=== PATIENT | male | born 1990 | race Caucasian/White ===

== ENCOUNTER 2021-12-30 12:19 | Observation (INO) | payer OTHER ==
[2021-12-30] MEDS ORDERED: ASPIRIN 81 MG CHEWABLE TABLET ONE (12:59)
[2021-12-30 13:09] LABS: Absolute Lymphocytes (CBC) 2.6 K/uL (0.7-4.9); Hematocrit 46.6 % (39.6-49.0); Lymphocytes % 31.8 % (15.3-44.8); MPV 7.3 fL (7.6-11.3); RBC Red Blood Cell Count 5.06 M/uL (4.33-5.43)
--- NOTE | 2021-12-30 13:14 | RAD REPORT ---
EXAM DESCRIPTION: RAD - Chest Single View - 12/30/2021 1:08 pm CLINICAL HISTORY: Right sided weakness Chest pain. COMPARISON: CHEST SINGLE VIEW dated 11/09/2008 FINDINGS: Portable technique limits examination quality. The lungs are grossly clear. The heart is normal in size. No displaced fractures. IMPRESSION: No acute intrathoracic process suspected.
[2021-12-30 13:22] LABS: Protime INR 0.99
[2021-12-30 13:27] LABS: Bilirubin Direct 0.1 mg/dL (0-0.2); Bilirubin Total 0.4 mg/dL (0.2-1.0); Potassium 4.2 mmol/L (3.5-5.1); Protein, Total 7.5 g/dL (6.4-8.2)
--- NOTE | 2021-12-30 14:07 | RAD REPORT ---
EXAM DESCRIPTION: CT - Ct Stroke Brain Wo Cont - 12/30/2021 2:00 pm CLINICAL HISTORY: Neuro deficit, acute, stroke suspected Headache, drowsiness, CVA symptomology. COMPARISON: No comparisons TECHNIQUE: All CT scans are performed using dose optimization technique as appropriate and may inclu de automated exposure control or mA/KV adjustment according to patient size. FINDINGS: No intracranial hemorrhage, hydrocephalus or extra-axial fluid collection.No areas of brai n edema or evidence of midline shift. The paranasal sinuses and mastoids are clear. The calvarium is intact. IMPRESSION: No acute intracranial abnormality.
[2021-12-30] MEDS ORDERED: ATORVASTATIN 20 MG TAB ONE (14:09)
--- NOTE | 2021-12-30 14:09 | RAD REPORT ---
EXAM DESCRIPTION: CT - Head angio - 12/30/2021 2:00 pm CLINICAL HISTORY: Neuro deficit, acute, stroke suspected Headache, drowsiness, CVA symptomology COMPARISON: Ct Stroke Brain Wo Cont dated 12/30/2021 TECHNIQUE: CT angiography of the head was performed with MIPs. All CT scans are performed using dose optimization technique as appropriate and may include automated exposure control or mA/KV adjustment according to patient size. FINDINGS: No evidence of aneurysm is detected. No flow-limiting stenosis or vascular malformation id entified. Antegrade flow is seen in the vertebral arteries. The vertebral arteries are codominant. The visualized dural venous sinuses are patent. IMPRESSION: No significant flow abnormality is detected.
[2021-12-30] MEDS ORDERED: NA CHLORIDE 0.9% 1,000 ML ONE (14:10)
[2021-12-30] MEDS ORDERED: FOLIC ACID 5 MG/ML VIAL ONE (14:10)
--- NOTE | 2021-12-30 14:12 | RAD REPORT ---
EXAM DESCRIPTION: CT - Neck Angio - 12/30/2021 2:00 pm CLINICAL HISTORY: Neuro deficit, acute, stroke suspected COMPARISON: No comparisons TECHNIQUE: CT angiography of the neck vessels was performed with MIPs. All CT scans are performed using dose optimization technique as appropriate and may include automated exposure control or mA/KV adjustment according to patient size. FINDINGS: A left aortic arch is identified with normal three vessel configuration of the great vesse ls. No significant flow abnormality is seen of the common carotid bilaterally. No significant stenosis is identified involving the cervical segments of both internal carotid arteri es. Normal flow is seen within both vertebral arteries. IMPRESSION: No significant flow abnormality of the neck vessels is identified.
--- NOTE | 2021-12-30 15:55 | RAD REPORT ---
EXAM DESCRIPTION: MRI - Brain Wo Cont - 12/30/2021 3:44 pm CLINICAL HISTORY: Neuro deficit, acute, stroke suspected Headache, drowsiness, CVA symptomology COMPARISON: Head angio dated 12/30/2021 TECHNIQUE: Multi-sequence, multiplanar MR imaging of the brain was performed without contrast. FINDINGS: No intracranial hemorrhage, hydrocephalus or extra-axial fluid collections. No edema or sh ift of midline structures. No findings to suspect brain mass. DWI is negative for acute CVA. Midline structures are normally formed. Mastoid air cells and paranasal sinuses are essentially clear. IMPRESSION: Negative for acute CVA or other acute intracranial process.
--- NOTE | 2021-12-30 16:33 | ER ---
Nurse's Notes [facility] Name: Baljit Salter Age: 31 yrs Sex: Male : 1990 Arrival Date: 12/30/2021 Time: 12:21 Bed 18 Private MD: Diagnosis: Cerebral infarction, unspecified-Rght sided weakness and paresthesia Presentation: 12/30 12:41 Chief complaint: Patient states: that [place] the beach, at approx ap3 1500, he started feeling a "heavy" feeling in his right arm. Patient states he thought it was him having high blood pressure. However he reports it then spread to his right leg and right side of the face. Patient states he feels like the right side of his arm and leg are "heavy". Coronavirus screen: At this time, the client does not indicate any symptoms associated with coronavirus-19. Ebola Screen: No symptoms or risks identified at this time. No acute neurological deficit is noted. Pre-hospital glucose is not applicable to this patient. Initial Sepsis Screen: Does the patient meet any 2 criteria? No. Patient's initial sepsis screen is negative. Does the patient have a suspected source of infection? No. Patient's initial sepsis screen is negative. Risk Assessment: Do you want to hurt yourself or someone else? Patient reports no desire to harm self or others. Onset of symptoms was December 29, 2021 at 15:00. 12:41 Method Of Arrival: Ambulatory ap3 12:41 Acuity: BRANDON 2 ap3 Triage Assessment: 12:50 The onset of the patients symptoms was December 29, 2021 at 15:00. ap3 12:50 Neuro: Reports weakness in right arm and right leg. ap3 Stroke Activation: Symptom onset > 6 hours Physician: Stroke Attending; Name: ; Notified At: ; Arrived At: Physician: Chief Stroke Resident; Name: ; Notified At: ; Arrived At: Physician: Stroke Resident; Name: ; Notified At: ; Arrived At: Physician: ED Attending; Name: ; Notified At: ; Arrived At: Physician: ED Resident; Name: ; Notified At: ; Arrived At: Historical: - Allergies: 12:50 No Known Allergies; ap3 - Home Meds: 12:50 None [Active]; ap3 - PMHx: 12:50 None; ap3 - Immunization history:: Client reports having NOT received the Covid vaccine. - Social history:: Smoking status: Patient reports the use of cigarette tobacco products, denies chronic smoking, but will smoke occasionally. Screenin:44 Abuse screen: Denies threats or abuse. Nutritional screening: No deficits noted. ap3 Tuberculosis screening: No symptoms or risk factors identified. Fall Risk No fall in past 12 months (0 pts). Secondary diagnosis (15 points) IV access (20 points). Ambulatory Aid- Crutches/Cane/Walker (15 pts). Gait- Impaired (20 pts.). Mental Status- Oriented to own ability (0 pts). Total Alvarez Fall Scale indicates Low Risk Score (25-44 pts). Fall prevention measures have been instituted. Side Rails Up X 2 Placed close to Nursing Station Frequent Obs/Assesments occuring As available Patient and Family Educated on Fall Prevention Program and strategies. Assessment: 12:48 VAN Scoring: Arm Drift: Patients demonstrates NO arm weakness. Patient is VAN Negative. ap3 Patient has been NPO before screening. The patient is alert, and able to follow commands. The patient does not exhibit slurred or garbled speech. The patient is not exhibiting difficulty speaking. The patient does not exhibit difficulty understanding words. The patient is able to swallow own secretions with no drooling or need for suction. Patient tolerated one teaspoon of water. No drooling, immediate coughing, gurgling, or clearing of the throat was noted. The patient tolerated 90mL of water. No drooling, immediate coughing, gurgling, or clearing of the throat was noted. The patient passed the bedside swallow screening. Oral medications may be given as ordered. Contact Physician for further diet orders. Provider notified of bedside swallow screening results: Roman Koo RESIDENT SERVICES COORDINATOR. T-PA (Activase) Screening: Contraindications: Patient reports onset of signs and symptoms of stroke greater than 6 hours ago: Yes. General: Appears in no apparent distress. Behavior is calm, cooperative. Pain: Denies pain. Neuro: Level of Consciousness is awake, alert, obeys commands, Oriented to person, place, time, situation, Appropriate for age Glass Melt Operator are weak on right Weakness in right arm(s) leg(s) Gait is unsteady, Speech is normal, Facial droop on right. Cardiovascular: Patient's skin is warm and dry. Respiratory: Airway is patent Respiratory effort is even, unlabored, Respiratory pattern is regular, symmetrical. 13:22 Reassessment: Patient and/or family updated on plan of care and expected duration. Pain ap3 level reassessed. Patient is alert, oriented x 3, equal unlabored respirations, skin warm/dry/pink. 16:37 Reassessment: Patient and/or family updated on plan of care and expected duration. Pain ap3 level reassessed. Patient is alert, oriented x 3, equal unlabored respirations, skin warm/dry/pink. 17:17 Reassessment: No changes from previously documented assessment. Patient and/or family ap3 updated on plan of care and expected duration. Pain level reassessed. Patient is alert, oriented x 3, equal unlabored respirations, skin warm/dry/pink. 19:30 Reassessment: Patient and/or family updated on plan of care and expected duration. Pain vc1 level reassessed. Patient is alert, oriented x 3, equal unlabored respirations, skin warm/dry/pink. 20:30 Reassessment: No changes from previously documented assessment. Patient and/or family vc1 updated on plan of care and expected duration. Pain level reassessed. Patient is alert, oriented x 3, equal unlabored respirations, skin warm/dry/pink. Vital Signs: 12:41 BP 147 / 86; Pulse 67; Resp 17; Temp 97.4; Pulse Ox 100% ; Weight 127.01 kg; Height 5 ap3 ft. 11 in. (180.34 cm); 13:22 BP 135 / 79; Pulse 70; Pulse Ox 98% on R/A; ap3 16:37 BP 120 / 72; Pulse 66; Pulse Ox 99% on R/A; ap3 17:18 BP 122 / 73; Pulse 58; Pulse Ox 99% on R/A; ap3 20:00 BP 120 / 70; Pulse 68; Resp 17; Pulse Ox 99% ; vc1 12:41 Body Mass Index 39.05 (127.01 kg, 180.34 cm) ap3 NIH Stroke Scale Scores: 12:44 NIHSS Score: 2 ap3 12:44 NIHSS Score: 2 pm1 12:48 NIHSS Score: 2 ap3 ED Course: 12:21 Patient arrived in ED. rg4 12:26 Tracie Vasquez, RN is Primary Nurse. ap3 12:28 Roman Koo RESIDENT SERVICES COORDINATOR is PHCP. pm1 12:28 Fercho Sierra MD is Attending Physician. pm1 12:44 Triage completed. ap3 12:49 Arm band placed on right wrist. ap3 12:50 Patient has correct armband on for positive identification. Bed in low position. Call ap3 light in reach. Side rails up X 1. giant tire repairer on. Pulse ox on. NIBP on. Door closed. Noise minimized. 13:02 Inserted saline lock: 20 gauge in right antecubital area, using aseptic technique. ap3 Blood collected. 13:07 X-ray completed. Portable x-ray completed in exam room. Patient tolerated procedure mh1 well. 13:10 Stroke CXR 1 View In Process Unspecified. EDMS 13:[address] Patient moved back from [address]. ap3 14:01 CT Stroke Brain w/o Contrast In Process Unspecified. EDMS 14:02 CT Head Angio In Process Unspecified. EDMS 14:02 CT Neck Angio In Process Unspecified. EDMS 14:51 Pt visited by . ap3 15:38 MRI - Brain Wo Cont In Process Unspecified. EDMS 16:31 Ger Sierra MD is Hospitalizing Provider. pm1 16:44 Deric Perez MD is Hospitalizing Provider. pm1 16:51 No provider procedures requiring assistance completed. Patient admitted, IV remains in ap3 place. Administered Medications: 13:01 Drug: Aspirin 325 mg Route: PO; ap3 14:12 Follow up: Response: No adverse reaction ap3 14:12 Drug: foLIC Acid 1 mg Route: IVPB; Site: right forearm; ap3 17:19 Follow up: IV Status: Completed infusion ap3 14:12 Drug: Lipitor (atorvastatin) 80 mg Route: PO; ap3 14:54 Follow up: Response: No adverse reaction ap3 14:12 Drug: NS 0.9% 1000 ml Route: IV; Rate: 125 ml/hr; Site: right forearm; ap3 17:19 Follow up: IV Status: Completed infusion; IV Intake: 1000ml ap3 Medication: 12:51 VIS not applicable for this client. ap3 Point of Care Testing: Blood Glucose: 16:51 Blood Glucose: 98 mg/dL; ap3 Ranges: Intake: 17:19 IV: 1000ml; Total: 1000ml. ap3 Outcome: 16:32 Decision to Hospitalize by Provider. pm1 16:51 Admitted to ER Hold. Please see [facility] for further documentation. ap3 16:51 Condition: good 16:51 Instructed on the need for admit. 21:14 Patient left the ED. vc1 NIH Stroke Scale - NIH Stroke Score Date: 12/30/2021 Time: 12:44 Total Score = 2 1a. Level of Consciousness (LOC) - 0(Alert) 1b. Level of Consciousness (LOC) (Month \\T\\ Age) - 0(Both) 1c. LOC Commands (Open \\T\\ Closes Eyes/Provider Scribe) - 0(Both) 2. Best Gaze (Lateral Gaze Paresis) - 0(Normal) 3. Visual Field Loss - 0(No visual loss) 4. Facial Palsy - 1(Minor Paralysis) 5a. Left Arm: Motor (10-second hold) - 0(No drift) 5b. Right Arm: Motor (10-second hold) - 0(No drift) 6a. Left Leg: Motor (5-second hold - always test supine) - 0(No drift) 6b. Right Leg: Motor (5-second hold - always test supine) - 0(No drift) 7. Limb Ataxia (finger/nose \\T\\ heel/curry - test with eyes open) - 0(Absent) 8. Sensory Loss (pinprick arms/legs/face) - 1(Mild to moderate loss) 9. Best Language: Aphasia (description/naming/reading) - 0(No aphasia) 10. Dysarthria (speech clarity - read or repeat words) - 0(Normal) 11. Extinction and Inattention (visual/tactile/auditory/spatial/personal) - 0(No abnormality) Initials: ap3 NIH Stroke Scale - NIH Stroke Score Date: 12/30/2021 Time: 12:44 Total Score = 2 1a. Level of Consciousness (LOC) - 0(Alert) 1b. Level of Consciousness (LOC) (Month \\T\\ Age) - 0(Both) 1c. LOC Commands (Open \\T\\ Closes Eyes/Provider Scribe) - 0(Both) 2. Best Gaze (Lateral Gaze Paresis) - 0(Normal) 3. Visual Field Loss - 0(No visual loss) 4. Facial Palsy - 1(Minor Paralysis) 5a. Left Arm: Motor (10-second hold) - 0(No drift) 5b. Right Arm: Motor (10-second hold) - 0(No drift) 6a. Left Leg: Motor (5-second hold - always test supine) - 0(No drift) 6b. Right Leg: Motor (5-second hold - always test supine) - 0(No drift) 7. Limb Ataxia (finger/nose \\T\\ heel/curry - test with eyes open) - 0(Absent) 8. Sensory Loss (pinprick arms/legs/face) - 1(Mild to moderate loss) 9. Best Language: Aphasia (description/naming/reading) - 0(No aphasia) 10. Dysarthria (speech clarity - read or repeat words) - 0(Normal) 11. Extinction and Inattention (visual/tactile/auditory/spatial/personal) - 0(No abnormality) Initials: pm1 NIH Stroke Scale - NIH Stroke Score Date: 12/30/2021 Time: 12:48 Total Score = 2 1a. Level of Consciousness (LOC) - 0(Alert) 1b. Level of Consciousness (LOC) (Month \\T\\ Age) - 0(Both) 1c. LOC Commands (Open \\T\\ Closes Eyes/Provider Scribe) - 0(Both) 2. Best Gaze (Lateral Gaze Paresis) - 0(Normal) 3. Visual Field Loss - 0(No visual loss) 4. Facial Palsy - 1(Minor Paralysis) 5a. Left Arm: Motor (10-second hold) - 0(No drift) 5b. Right Arm: Motor (10-second hold) - 0(No drift) 6a. Left Leg: Motor (5-second hold - always test supine) - 0(No drift) 6b. Right Leg: Motor (5-second hold - always test supine) - 0(No drift) 7. Limb Ataxia (finger/nose \\T\\ heel/curry - test with eyes open) - 0(Absent) 8. Sensory Loss (pinprick arms/legs/face) - 1(Mild to moderate loss) 9. Best Language: Aphasia (description/naming/reading) - 0(No aphasia) 10. Dysarthria (speech clarity - read or repeat words) - 0(Normal) 11. Extinction and Inattention (visual/tactile/auditory/spatial/personal) - 0(No abnormality) Initials: ap3 Signatures: Dispatcher [employer] Sultana Frazier mh1 Roman Koo, RESIDENT SERVICES COORDINATOR RESIDENT SERVICES COORDINATOR pm1 Michelle Seay rg4 Tracie Vasquez, RN RN ap3 Verona Benitez, YADIRA RN vc1
--- NOTE | 2021-12-30 16:33 | EDPHYS ---
Physician Documentation [facility] Name: Baljit Salter Age: 31 yrs Sex: Male : 1990 Arrival Date: 12/30/2021 Time: 12:21 Bed 18 Private MD: ED Physician Fercho Sierra HPI: 12/30 12:43 This 31 yrs old Male presents to ER via Ambulatory with complaints of Facial Droop, pm1 High Blood Pressure. 12:43 The patient presents to the emergency department with weakness of the right upper pm1 extremity, weakness and numbness, right lower extremity, weakness and numbness, right side of the face, right facial droop. Onset: The symptoms/episode began/occurred yesterday, at 15:00. Context: occurred while driving to the beach yesterday. Started with heaviness in the right arm and then spread to his right face and leg. Associated signs and symptoms: Pertinent positives: mild left sided headache with onset of right arm heaviness. Severity of symptoms: in the emergency department the symptoms are unchanged. Patient's baseline: Neuro: alert and fully oriented, Motor: no deficits, Ambulation: walks without assistance, Speech: normal. The patient has not experienced similar symptoms in the past. The patient has not recently seen a physician. Historical: - Allergies: 12:50 No Known Allergies; ap3 - Home Meds: 12:50 None [Active]; ap3 - PMHx: 12:50 None; ap3 - Immunization history:: Client reports having NOT received the Covid vaccine. - Social history:: Smoking status: Patient reports the use of cigarette tobacco products, denies chronic smoking, but will smoke occasionally. ROS: 12:50 Constitutional: Negative for fever, chills, and weight loss, Cardiovascular: Negative pm1 for chest pain, palpitations, and edema, Respiratory: Negative for shortness of breath, cough, wheezing, and pleuritic chest pain, Abdomen/GI: Negative for abdominal pain, nausea, vomiting, diarrhea, and constipation, Back: Negative for injury and pain, MS/Extremity: Negative for injury and deformity, Skin: Negative for injury, rash, and discoloration. 12:50 Neuro: Positive for numbness, weakness, of the right leg and right arm, Right sided facial droop. 12:50 All other systems are negative. Exam: 12:50 Constitutional: This is a well developed, well nourished patient who is awake, alert, pm1 and in no acute distress. Head/Face: Normocephalic, atraumatic. 12:50 Skin: Warm, dry with normal turgor. Normal color with no rashes, no lesions, and no evidence of cellulitis. MS/ Extremity: Pulses equal, no cyanosis. Neurovascular intact. Full, normal range of motion. 12:50 Eyes: Exam is negative for acute changes, Periorbital structures: no acute changes, Extraocular movements: no acute changes. 12:50 ENT: Exam is negative for acute changes, Mouth: no acute changes, Lips: normal, moist, Oral mucosa: normal, pink and intact, moist. 12:50 Cardiovascular: Exam negative for acute changes, Rate: normal, Rhythm: regular, Pulses: no pulse deficits are appreciated, Heart sounds: normal. 12:50 Respiratory: Exam negative for acute changes, respiratory distress, shortness of breath, Breath sounds: are clear throughout. 12:50 Abdomen/GI: Exam negative for acute changes, Inspection: abdomen appears normal, Palpation: abdomen is soft and non-tender, in all quadrants. 12:50 Neuro: Orientation: is normal, Mentation: is normal, Cranial nerves: CN II- XII are normal as tested, Motor: moves all fours, strength is 5/5 in the left arm and left leg, strength is 4/5 in the right arm and right leg, Sensation: numbness, that is mild, of the right arm and right leg, right sided facial droop. Vital Signs: 12:41 BP 147 / 86; Pulse 67; Resp 17; Temp 97.4; Pulse Ox 100% ; Weight 127.01 kg; Height 5 ap3 ft. 11 in. (180.34 cm); 13:22 BP 135 / 79; Pulse 70; Pulse Ox 98% on R/A; ap3 16:37 BP 120 / 72; Pulse 66; Pulse Ox 99% on R/A; ap3 17:18 BP 122 / 73; Pulse 58; Pulse Ox 99% on R/A; ap3 20:00 BP 120 / 70; Pulse 68; Resp 17; Pulse Ox 99% ; vc1 12:41 Body Mass Index 39.05 (127.01 kg, 180.34 cm) ap3 NIH Stroke Scale Scores: 12:44 NIHSS Score: 2 ap3 12:44 NIHSS Score: 2 pm1 12:48 NIHSS Score: 2 ap3 MDM: 12:29 Patient medically screened. pm1 12:43 ED course: Patient is out of the window for thrombolytics. pm1 14:00 Data reviewed: vital signs. Data interpreted: Pulse oximetry: on room air is 99 %. pm1 Interpretation: normal. 16:28 Physician consultation: Nas Durand MD was called at 16:28, was contacted at 16:28, pm1 regarding consult, patient's condition, and will see patient tomorrow, requests Lipid panel and MRA tomorrow. 12/30 12:43 Order name: Basic Metabolic Panel; Complete Time: 13:43 pm1 12/30 12:43 Order name: CBC with Diff; Complete Time: 13:43 pm1 12/30 12:43 Order name: Hepatic Function; Complete Time: 13:43 pm1 12/30 12:43 Order name: Protime (+inr); Complete Time: 13:43 pm1 12/30 12:43 Order name: Ptt, Activated; Complete Time: 13:43 pm1 12/30 14:10 Order name: SARS-COV-2 RT PCR; Complete Time: 15:09 EDME 12/30 17:56 Order name: Urinalysis EDME 12/30 17:56 Order name: Basic Metabolic Panel EDME 12/30 17:56 Order name: Basic Metabolic Panel EDME 12/30 17:56 Order name: CBC with Automated Diff EDME 12/30 17:56 Order name: CBC with Automated Diff EDME 12/30 17:58 Order name: Hemoglobin A1c EDME 12/30 17:58 Order name: Lipid Profile; Complete Time: 18:27 EDMS 12/30 12:43 Order name: CT Stroke Brain w/o Contrast; Complete Time: 14:28 pm1 12/30 12:43 Order name: Stroke CXR 1 View; Complete Time: 13:43 pm1 12/30 12:43 Order name: EKG; Complete Time: 12:44 pm1 12/30 12:43 Order name: Accucheck; Complete Time: 14:39 pm1 12/30 12:43 Order name: Cardiac monitoring; Complete Time: 14:05 pm1 12/30 12:43 Order name: EKG - Nurse/Tech; Complete Time: 14:05 pm1 12/30 12:43 Order name: CT Head Angio; Complete Time: 14:28 pm1 12/30 12:43 Order name: CT Neck Angio; Complete Time: 14:28 pm1 12/30 14:44 Order name: MRI - Brain Wo Cont; Complete Time: 16:20 pm1 12/30 17:52 Order name: CONS Physician Consult EDME 12/30 17:56 Order name: Heart Healthy EDME 12/30 17:56 Order name: Echo with Doppler EDME 12/30 12:43 Order name: IV Saline Lock; Complete Time: 13:01 pm1 12/30 12:43 Order name: Labs collected and sent; Complete Time: 13:01 pm1 12/30 12:43 Order name: NPO; Complete Time: 12:51 pm1 12/30 12:43 Order name: O2 Per Protocol; Complete Time: 12:51 pm1 12/30 12:43 Order name: O2 Sat Monitoring; Complete Time: 12:51 pm1 12/30 12:43 Order name: Stroke Swallow Screen; Complete Time: 12:51 pm1 Administered Medications: 13:01 Drug: Aspirin 325 mg Route: PO; ap3 14:12 Follow up: Response: No adverse reaction ap3 14:12 Drug: foLIC Acid 1 mg Route: IVPB; Site: right forearm; ap3 17:19 Follow up: IV Status: Completed infusion ap3 14:12 Drug: Lipitor (atorvastatin) 80 mg Route: PO; ap3 14:54 Follow up: Response: No adverse reaction ap3 14:12 Drug: NS 0.9% 1000 ml Route: IV; Rate: 125 ml/hr; Site: right forearm; ap3 17:19 Follow up: IV Status: Completed infusion; IV Intake: 1000ml ap3 Point of Care Testing: Blood Glucose: 16:51 Blood Glucose: 98 mg/dL; ap3 Ranges: Critical Glucose Levels:Adult <50 mg/dl or >400 mg/dl <40 mg/dl or >180 mg/dl Disposition: 12/31 14:40 Co-signature as Attending Physician, Fercho Sierra MD. rn Disposition Summary: 12/30/21 16:32 Hospitalization Ordered Hospitalization Status: Inpatient Admission pm1 [facility] pm1 Condition: Stable pm1 Problem: new pm1 Symptoms: are unchanged pm1 Bed/Room Type: Standard pm1 Provider: Deric Perez(12/30/21 16:44) pm1 Room Assignment: [facility](12/30/21 19:39) Diagnosis - Cerebral infarction, unspecified - Rght sided weakness and paresthesia pm1 Forms: - Medication Reconciliation Form pm1 - SBAR form pm1 NIH Stroke Scale - NIH Stroke Score Date: 12/30/2021 Time: 12:44 Total Score = 2 1a. Level of Consciousness (LOC) - 0(Alert) 1b. Level of Consciousness (LOC) (Month \T\ Age) - 0(Both) 1c. LOC Commands (Open \T\ Closes Eyes/Water Leak Repairer) - 0(Both) 2. Best Gaze (Lateral Gaze Paresis) - 0(Normal) 3. Visual Field Loss - 0(No visual loss) 4. Facial Palsy - 1(Minor Paralysis) 5a. Left Arm: Motor (10-second hold) - 0(No drift) 5b. Right Arm: Motor (10-second hold) - 0(No drift) 6a. Left Leg: Motor (5-second hold - always test supine) - 0(No drift) 6b. Right Leg: Motor (5-second hold - always test supine) - 0(No drift) 7. Limb Ataxia (finger/nose \T\ heel/curry - test with eyes open) - 0(Absent) 8. Sensory Loss (pinprick arms/legs/face) - 1(Mild to moderate loss) 9. Best Language: Aphasia (description/naming/reading) - 0(No aphasia) 10. Dysarthria (speech clarity - read or repeat words) - 0(Normal) 11. Extinction and Inattention (visual/tactile/auditory/spatial/personal) - 0(No abnormality) Initials: ap3 NIH Stroke Scale - NIH Stroke Score Date: 12/30/2021 Time: 12:44 Total Score = 2 1a. Level of Consciousness (LOC) - 0(Alert) 1b. Level of Consciousness (LOC) (Month \T\ Age) - 0(Both) 1c. LOC Commands (Open \T\ Closes Eyes/Water Leak Repairer) - 0(Both) 2. Best Gaze (Lateral Gaze Paresis) - 0(Normal) 3. Visual Field Loss - 0(No visual loss) 4. Facial Palsy - 1(Minor Paralysis) 5a. Left Arm: Motor (10-second hold) - 0(No drift) 5b. Right Arm: Motor (10-second hold) - 0(No drift) 6a. Left Leg: Motor (5-second hold - always test supine) - 0(No drift) 6b. Right Leg: Motor (5-second hold - always test supine) - 0(No drift) 7. Limb Ataxia (finger/nose \T\ heel/curry - test with eyes open) - 0(Absent) 8. Sensory Loss (pinprick arms/legs/face) - 1(Mild to moderate loss) 9. Best Language: Aphasia (description/naming/reading) - 0(No aphasia) 10. Dysarthria (speech clarity - read or repeat words) - 0(Normal) 11. Extinction and Inattention (visual/tactile/auditory/spatial/personal) - 0(No abnormality) Initials: pm1 NIH Stroke Scale - NIH Stroke Score Date: 12/30/2021 Time: 12:48 Total Score = 2 1a. Level of Consciousness (LOC) - 0(Alert) 1b. Level of Consciousness (LOC) (Month \T\ Age) - 0(Both) 1c. LOC Commands (Open \T\ Closes Eyes/Water Leak Repairer) - 0(Both) 2. Best Gaze (Lateral Gaze Paresis) - 0(Normal) 3. Visual Field Loss - 0(No visual loss) 4. Facial Palsy - 1(Minor Paralysis) 5a. Left Arm: Motor (10-second hold) - 0(No drift) 5b. Right Arm: Motor (10-second hold) - 0(No drift) 6a. Left Leg: Motor (5-second hold - always test supine) - 0(No drift) 6b. Right Leg: Motor (5-second hold - always test supine) - 0(No drift) 7. Limb Ataxia (finger/nose \T\ heel/curry - test with eyes open) - 0(Absent) 8. Sensory Loss (pinprick arms/legs/face) - 1(Mild to moderate loss) 9. Best Language: Aphasia (description/naming/reading) - 0(No aphasia) 10. Dysarthria (speech clarity - read or repeat words) - 0(Normal) 11. Extinction and Inattention (visual/tactile/auditory/spatial/personal) - 0(No abnormality) Initials: ap3 Signatures: Dispatcher [employer] EDMS Fercho Sierra MD MD rn Garcia, Cindy, RN RN cg Roman Koo, PATIENT INTAKE COORDINATOR PATIENT INTAKE COORDINATOR pm1 Tracie Vasquez RN RN ap3 Corrections: (The following items were deleted from the chart) 12/30 14:10 13:24 COVID 19 CPL+BRZ ordered. EDMS EDMS 16:44 16:32 Ger Sierra pm1 pm1 19:39 16:32 pm1 cinthia
[2021-12-30] MEDS ORDERED: HYDROCODONE/APAP 5/325 MG TAB PO PRN (17:51)
[2021-12-30] MEDS ORDERED: HYDRALAZINE HCL 20 MG/ML VIAL IV PRN (17:51)
[2021-12-30] MEDS ORDERED: ONDANSETRON 4 MG/2 ML VIAL IV PRN (17:52)
[2021-12-30] MEDS ORDERED: ACETAMINOPHEN 500 MG TAB PO PRN (17:52)
--- NOTE | 2021-12-30 17:57 | P.HP ---
Certification for Inpatient Patient admitted to: Observation With expected LOS: <2 Midnights Patient will require the following post-hospital care: None Practitioner: I am a practitioner with admitting privileges, knowledge of patient current condition, hospital course, and medical plan of care. Services: Services provided to patient in accordance with Admission requirements found in Title 42 Section 412.3 of the Code of Federal Regulations Patient History Date of Service: 12/30/21 Reason for admission: Right sided weakness and Numbness History of Present Illness: Patient is a 32-year-old male with a past medical history significant for obesity, nicotine dependence who presents with complaint of right-sided weakness\numbness onset yesterday [place] the beach. Patient reports associated signs and symptoms of facial droop, slurred speech, headache and poor gait. Patient denies any other signs and symptoms. Symptoms are aggravated or relieved by nothing. Patient decided to present to the hospital due to worsening symptoms. Allergies No Known Allergies Allergy (Verified 12/30/21 21:16) Home medications list reviewed: No Home Medications: NK [No Home Meds] 12/30/21 - Past Medical/Surgical History Diabetic: No -: Obesity Past Surgical History: Reviewed- Non-Contributory - Family History Father -: Heart disease, Hypertension, Other (see notes) (MD) Sister -: Hypertension, Diabetes, Stroke Brother -: Hypertension - Social History Smoking Status: Current every day smoker Counseled patient to stop smoking for: less than 10 minutes Smoking therapy provided: Yes Patient receptive to therapy: Yes Alcohol use: Yes CD- Drugs: No Caffeine use: Yes Place of Residence: Home Review of Systems General: Weakness Eyes: Unremarkable ENT: Unremarkable Respiratory: Unremarkable Cardiovascular: Unremarkable Gastrointestinal: Unremarkable Genitourinary: Unremarkable Musculoskeletal: Other (Poor gait ) Integumentary: Unremarkable Neurological: Weakness, Numbness, Other (Facial droop, Slurred speech) Lymphatics: Unremarkable Physical Examination - Physical Exam General: Alert, Oriented x3, Cooperative HEENT: Normocephalic, PERRLA Neck: Supple, 2+ carotid pulse no bruit, JVD not distended Respiratory: Clear to auscultation bilaterally, Normal air movement Cardiovascular: Normal pulses, Regular rate/rhythm, Normal S1 S2 Capillary refill: <2 Seconds Gastrointestinal: Normal bowel sounds, Soft and benign, Non-distended Musculoskeletal: No clubbing, No swelling, No contractures, No erythema, No tenderness Integumentary: No rashes, No breakdown, No significant lesion, No tenderness/swelling, No erythema Neurological: Normal speech, Sensation intact Lymphatics: No axilla or inguinal lymphadenopathy - Studies Laboratory Data (last 24 hrs) 12/30/21 13:00: PT 10.9, INR 0.99, APTT 34.9 12/30/21 13:00: WBC 8.3, Hgb 15.9, Hct 46.6, Plt Count 309 12/30/21 13:00: Sodium 139, Potassium 4.2, BUN 14, Creatinine 0.99, Glucose 98, Total Bilirubin 0.4, AST 52 H, ALT 135 H, Alkaline Phosphatase 52 Assessment and Plan - Plan --TIA. MRI brain does not indicate any acute CVA or other acute intracranial process. Continue aspirin. Neurology consulted. Echocardiogram pending. Will await further recommendation from neurologist. --Hypertension. Patient reports noncompliance with home medication. Poorly controlled. We will manage BP with hydralazine as needed. --Nicotine dependence. Patient counseled on tobacco cessation. Refuses nicotine patch. --Class II obesity. Likely secondary to excess calories intake. Patient counseled on weight reduction, diet and exercise therapy. --Dyslipidemia. Further management per patient's PCP outpatient. --Headache. Tylenol prn -- Abnormality of gait and mobility. PT eval and treat. -- Right-sided paresthesia. Likely secondary to TIA. Continue supportive care. --DVT prophylaxis with heparin subQ. Discharge Plan: Home Plan to discharge in: 48 Hours - Advance Directives Does patient have a Living Will: No Does patient have a Durable POA for Healthcare: No - Code Status/Comfort Care Code Status Assessed: Yes Code Status: Full Code Physician Review: Patient Assessed, Agree with Above Assessment and Plan Critical Care: No
[2021-12-30] MEDS: ENOXAPARIN 40 MG/0.4 ML SQ SCH (20:00)
[2021-12-30 21:16] VITALS: BMI 38.5
[2021-12-31 00:41] VITALS: O2SAT 96
[2021-12-31 04:36] LABS: Absolute Lymphocytes (CBC) 3.3 K/uL (0.7-4.9); Hematocrit 44.9 % (39.6-49.0); Lymphocytes % 34.7 % (15.3-44.8); MPV 7.4 fL (7.6-11.3); RBC Red Blood Cell Count 4.92 M/uL (4.33-5.43)
[2021-12-31 05:21] LABS: Potassium 4.2 mmol/L (3.5-5.1)
[2021-12-31] MEDS: ENOXAPARIN 40 MG/0.4 ML SQ SCH (07:59)
[2021-12-31] MEDS ORDERED: ASPIRIN 325 MG TAB PO SCH (09:00)
[2021-12-31 09:52] VITALS: BP 109/66; TEMP 97.3
--- NOTE | 2021-12-31 11:08 | EKG ---
Test Date: 2021-12-30 Test Time: 13:04:51 Geriatrics Physician: IRENE MEASUREMENT RESULTS: Intervals: Rate: 69 CA: 152 QRSD: 98 QT: 400 QTc: 428 [place]: P: 28 CA: 152 QRS: 57 T: 42 INTERPRETIVE STATEMENTS: Sinus rhythm with occasional premature ventricular complexes ST elevation, probably due to early repolarization Borderline ECG No previous ECG available for comparison Electronically Signed On 12-31-21 11:05:02 CDT by Blaise Newell
--- NOTE | 2021-12-31 11:34 | ECHO ---
HEIGHT: 5 ft 11 in WEIGHT: 276 lb 1.6 oz DATE OF STUDY: 12/31/[address]: Amarilis Zamora 2-DIMENSIONAL: YES M.MODE: YES DOPPLER: YES COLOR FLOW: YES TDS: PORTABLE: YES DEFINITY: BUBBLE STUDY: DIAGNOSIS: TRANSIENT ISCHEMIC ATTACK CARDIAC HISTORY: CATHERIZATION: NO SURGERY: NO PROSTHETIC VALVE: NO PACEMAKER: NO MEASUREMENTS (cm) DIASTOLIC (NORMALS) SYSTOLIC (NORMALS) IVSd 1.1 (0.6-1.2) LA Diam 3.1 (1.9-4.0) LVEF 53% LVIDd 4.2 (3.5-5.7) LVIDs 3.1 (2.0-3.5) %FS 27% LVPWd 1.8 (0.6-1.2) Ao Diam (2.0-3.7) 2 DIMENSIONAL ASSESSMENT: RIGHT ATRIUM: NORMAL LEFT ATRIUM: NORMAL RIGHT VENTRICLE: NORMAL LEFT VENTRICLE: NORMAL TRICUSPID VALVE: NORMAL MITRAL VALVE: NORMAL PULMONIC VALVE: NORMAL AORTIC VALVE: NORMAL PERICARDIAL EFFUSION: NONE AORTIC ROOT: NORMAL LEFT VENTRICULAR WALL MOTION: NORMAL DOPPLER/COLOR FLOW: NORMAL COMMENTS: NORMAL 2-DIMENSIONAL ECHOCARDIOGRAM WITH DOPPLER. NO WALL MOTION ABNORMALITY. NO EFFUSION. TECHNOLOGIST: WILLIAN FARRELL
== END 2021-12-31 10:59 | disposition home or self-care (01) ==
LOC: ER 12:19 → ERHOLD 17:49 → 2ND 20:18
PROVIDERS: ADMIT Hospitalist; ATTEND Hospitalist
DX: R53.1 Weakness (principal); R20.2 Paresthesia of skin; R47.81 Slurred speech; R29.810 Facial weakness; R51.9 Headache, unspecified; R20.0 Anesthesia of skin; R26.9 Unspecified abnormalities of gait and mobility; E78.5 Hyperlipidemia, unspecified; Z91.14 Patient's other noncompliance with medication regimen; E66.9 Obesity, unspecified; Z68.38 Body mass index [BMI] 38.0-38.9, adult; Z71.3 Dietary counseling and surveillance; F17.210 Nicotine dependence, cigarettes, uncomplicated; Z71.6 Tobacco abuse counseling; Z28.310 Unvaccinated for COVID-19; Z20.822 Contact with and (suspected) exposure to COVID-19; Z82.3 Family history of stroke; Z82.49 Family history of ischemic heart disease and other diseases of the circulatory system; Z83.3 Family history of diabetes mellitus
CPT/HCPCS: 96365; 93005; 93306; 85025 ×2; 80048 ×2; 36415 ×2; 85610; 80061; 80076; 85730; 83036; 70496; 70498; 70450; 71045; 70551; 97116; 97161; 99285; 96366; U0003; Q9967; J1650 ×2; J7030; G0378 ×3